=== PATIENT | female | born 1970 | race Caucasian/White ===

== ENCOUNTER 2025-09-15 03:39 | Emergency (ER) | payer SELFPAY ==
[~2025-09-15] VITALS: Ht 157.4 cm; Wt 114.3 kg
[2025-09-15] MEDS ORDERED: Acetaminophen/Hydrocodone ES 7.5/325 tablet PO ONE (04:35)
[2025-09-15] MEDS ORDERED: Ondansetron Hydrochloride 4 MG TAB SL ONE (04:35)
[2025-09-15] MEDS ORDERED: HYDROCODONE-AC1 EAC1 PO (05:59)
== END 2025-09-15 06:12 | disposition home or self-care (01) ==
LOC: ED 03:39
DX: S42.302A Unspecified fracture of shaft of humerus, left arm, initial encounter for closed fracture (principal); S20.212A Contusion of left front wall of thorax, initial encounter; W01.0XXA Fall on same level from slipping, tripping and stumbling without subsequent striking against object, initial encounter; Y93.89 Activity, other specified; Y92.89 Other specified places as the place of occurrence of the external cause; Y99.8 Other external cause status